=== PATIENT | female | born 1950 | race Caucasian/White ===

== ENCOUNTER 2021-11-20 10:03 | Emergency (ER) | payer MEDICARE ==
[~2021-11-20] VITALS: Ht 167.6 cm; Wt 68.9 kg
[2021-11-20] MEDS ORDERED: METHOCARBAMOL 500 MG TAB PO ONE (10:30)
[2021-11-20] MEDS ORDERED: KETOROLAC TROMETHAMINE 60 MG/2 ML VIAL IM ONE (10:30)
[2021-11-20 11:12] LABS: CLARITY,URINE CLEAR (CLEAR); COLOR,URINE YELLOW (YELLOW); KETONES,URINE NEGATIVE (NEGATIVE); LEUKOCYTE ESTERASE ,URINE TRACE (NEGATIVE); NITRITE,URINE NEGATIVE (NEGATIVE); PROTEIN,URINE DIPSTICK NEGATIVE (NEGATIVE); URINE UROBILINOGEN 0.2 mg/dL (0.2 - 1)
[2021-11-20 11:25] LABS: BACTERIA,URINE RARE /HPF; EPITHELIAL CELLS,URINE RARE /LPF; RBC,URINE 0-5 /HPF (0-5)
[2021-11-20] MEDS ORDERED: METHOCARBAMOL500 MG PO (12:07)
[2021-11-20] MEDS ORDERED: NAPROXEN250 MG PO (12:07)
[2021-11-20] MEDS ORDERED: CEFDINIR300 MG PO (12:12)
== END 2021-11-20 12:23 | disposition home or self-care (01) ==
LOC: ER 11:24
DX: M51.36 Other intervertebral disc degeneration, lumbar region (principal); M48.061 Spinal stenosis, lumbar region without neurogenic claudication; N39.0 Urinary tract infection, site not specified; G25.0 Essential tremor; Z90.49 Acquired absence of other specified parts of digestive tract; Z88.2 Allergy status to sulfonamides
CPT/HCPCS: 72131; 81001; 99284; J1885